=== PATIENT | male | born 1980 | race Caucasian/White ===

== ENCOUNTER 2018-01-05 22:50 | Emergency (ER) | payer OTHER ==
[2018-01-06] MEDS: HYDROCODONE/APAP (10/325) TAB PO (02:32)
== END 2018-01-06 03:03 | disposition home or self-care (01) ==
LOC: E/R 22:50
DX: I82.401 Acute embolism and thrombosis of unspecified deep veins of right lower extremity (principal); F84.0 Autistic disorder; Z86.59 Personal history of other mental and behavioral disorders; Z87.891 Personal history of nicotine dependence
CPT/HCPCS: 99283; Z7502

== ENCOUNTER 2018-01-25 14:43 | Emergency (ER) | payer OTHER ==
[2018-01-25] MEDS: HYDROCODONE/APAP (5/325) TAB PO (16:19)
== END 2018-01-25 16:30 | disposition home or self-care (01) ==
LOC: FTE 14:43
DX: S82.831G Other fracture of upper and lower end of right fibula, subsequent encounter for closed fracture with delayed healing (principal); G89.29 Other chronic pain; F17.210 Nicotine dependence, cigarettes, uncomplicated; F84.0 Autistic disorder; X58.XXXD Exposure to other specified factors, subsequent encounter; Z86.59 Personal history of other mental and behavioral disorders; Z86.718 Personal history of other venous thrombosis and embolism
CPT/HCPCS: 99283; Z7502

== ENCOUNTER 2018-05-21 00:10 | Emergency (ER) | payer OTHER ==
[2018-05-21] MEDS: HYDROCODONE/APAP (10/325) TAB PO (01:48)
[2018-05-21] MEDS: ONDANSETRON (ODT) 4 MG TAB ODT (01:48)
[2018-05-21 01:50] LABS: ADD MAN DIFF? NO
[2018-05-21 01:51] LABS: WHITE BLOOD COUNT 11.2 10^3/ul (4.8-10.8)
[2018-05-21 01:51] LABS: BASOPHILS % 0.4 % (0.0-2.0); EOSINOPHILS # 0.1 10^3/ul (0.0-0.5); EOSINOPHILS % 0.8 % (0.0-7.0); HEMATOCRIT 43.5 % (42.0-52.0); LYMPHOCYTES # 2.7 10^3/ul (0.8-2.9); LYMPHOCYTES % 23.9 % (15.0-51.0); MEAN CORPUSCULAR HEMOGLOBIN 28.2 pg (29.0-33.0); MEAN CORPUSCULAR HGB CONC 32.2 g/dl (32.0-37.0); MEAN CORPUSCULAR VOLUME 87.7 fl (82.0-101.0); MEAN PLATELET VOLUME 11.2 fl (7.4-10.4); MONOCYTE # 0.9 10^3/ul (0.3-0.9); MONOCYTES % 8.3 % (0.0-11.0); NEUTROPHIL # 7.4 10^3/ul (1.6-7.5); NEUTROPHILS % 66.3 % (39.0-77.0); PLATELET COUNT 203 10^3/UL (140-415); RED BLOOD COUNT 4.96 10^6/ul (4.70-6.10); RED CELL DISTRIBUTION WIDTH 14.2 % (11.5-14.5)
[2018-05-21 02:14] LABS: ALANINE AMINOTRANSFERASE 63 IU/L (13-69); ALBUMIN 4.6 g/dl (3.3-4.9); ALBUMIN/GLOBULIN RATIO 1.21; ALKALINE PHOSPHATASE 98 IU/L (42-121); ANION GAP 10 (5-13); ASPARTATE AMINO TRANSFERASE 64 IU/L (15-46); BLOOD UREA NITROGEN 15 mg/dl (7-20); CARBON DIOXIDE 28 mmol/L (21-31); CHLORIDE 105 mmol/L (97-110); CREATININE 0.81 mg/dl (0.61-1.24); Estimated GFR > 60 mL/min (>60); GLUCOSE 100 mg/dl (70-220); LIPASE 206 U/L (23-300); POTASSIUM 4.5 mmol/L (3.5-5.1); SODIUM 143 mmol/L (135-144); TOTAL PROTEIN 8.4 g/dl (6.1-8.1)
== END 2018-05-21 03:20 | disposition home or self-care (01) ==
LOC: E/R 00:10
DX: R10.84 Generalized abdominal pain (principal); M25.561 Pain in right knee; Z87.891 Personal history of nicotine dependence
CPT/HCPCS: 36415; 73562; 80053; 83690; 85025; 99284-25